=== PATIENT | female | born 1960 | race Caucasian/White ===

== ENCOUNTER 2020-11-12 18:28 | Emergency (ER) | payer OTHER | END 2020-11-12 19:12 | disposition home or self-care (01) | LOC: EDH 18:28 | DX: I10 Essential (primary) hypertension (principal); Z76.0 Encounter for issue of repeat prescription; F41.9 Anxiety disorder, unspecified; Z88.1 Allergy status to other antibiotic agents ==

== ENCOUNTER → 2024-05-16 | Outpatient (CLI) | payer OTHER | END | disposition home or self-care (01) | LOC: RAH 10:48 | PROVIDERS: ATTEND Student in an Organized Health Care Education/Training Program | DX: K44.9 Diaphragmatic hernia without obstruction or gangrene (principal) | CPT/HCPCS: 71250; 74176 ==

== ENCOUNTER 2024-05-29 14:00 | Inpatient (IN) | payer OTHER ==
[~2024-05-29] VITALS: Ht 172.7 cm; Wt 89.2 kg
[2024-05-29 15:13] LABS: BASOPHILS # (AUTO) 0.06 K/uL (0.00-0.20); EOSINOPHILS # (AUTO) 0.22 K/uL (0.00-0.70); EOSINOPHILS % (AUTO) 3.6 % (0.0-8.0); HEMATOCRIT 38.9 % (36-48); IMMATURE GRANULOCYTE ABSOLUTE 0.02 K/uL (0-1); LYMPHOCYTES # (AUTO) 1.8 K/uL (1.0-4.8); MEAN CORPUSCULAR HGB CONC 31.6 g/dL (32.0-36.0); MEAN CORPUSCULAR VOLUME 88.6 fL (79-99); MONOCYTES # (AUTO) 0.5 K/uL (0.1-1.0); MONOCYTES % (AUTO) 8.6 % (3.0-13.0); NEUTROPHILS # (AUTO) 3.4 K/uL (1.8-7.7); NEUTROPHILS % (AUTO) 56.5 % (40.0-77.0); PLATELET COUNT (AUTO) 299 K/uL (130-400); RED BLOOD CELL COUNT(AUTO) 4.39 MIL/uL (4.00-5.50); RED CELL DISTRIBUTION WIDTH 13.2 % (11.0-15.5); WHITE BLOOD COUNT (AUTO) 6.1 K/uL (4.8-10.8)
[2024-05-29 15:20] VITALS: BP 162/86; PULSE 82; RESP 18; TEMP 98.6
[2024-05-29 15:34] LABS: INR 0.98 (0.85-1.15); PROTHROMBIN TIME 10.6 SEC (9.6-11.6)
[2024-05-29 15:36] LABS: PARTIAL THROMBOPLASTIN TIME 26.2 SEC (26.3-35.5)
[2024-05-29] MEDS ORDERED: SUBOXONE SL (15:53)
[2024-05-29] MEDS ORDERED: GABA-534 PO (15:53)
[2024-05-29] MEDS ORDERED: CETI-89 PO (15:53)
[2024-05-29] MEDS ORDERED: OMEP20CA12 PO (15:53)
[2024-05-29] MEDS ORDERED: CITA-107 PO (15:53)
[2024-05-29] MEDS ORDERED: LISI1TAB51 PO (15:53)
[2024-05-29 15:55] LABS: ALBUMIN 3.8 g/dL (3.5-5.0); BILIRUBIN,TOTAL 0.3 mg/dL (0.2-1.0); CREATININE 0.9 mg/dL (0.5-1.0); POTASSIUM 3.7 mmol/L (3.5-5.1); TOTAL PROTEIN, SERUM 7.5 g/dL (6.0-8.3)
[2024-05-29 16:05] LABS: APPEARANCE,URINE CLEAR (CLEAR); BILIRUBIN,URINE NEGATIVE (NEGATIVE); COLOR,URINE LIGHT-YELLOW (YELLOW); GLUCOSE, URINE (UA) NEGATIVE (NEGATIVE); KETONES,URINE NEGATIVE (NEGATIVE); LEUKOCYTE ESTERASE ,URINE NEGATIVE Leu/uL (NEGATIVE); NITRATE,URINE NEGATIVE (NEGATIVE); OCCULT BLOOD,URINE SMALL (NEGATIVE); PH,URINE 5.5 (5.0-8.0); PROTEIN,URINE NEGATIVE (NEGATIVE); UROBILINOGEN,URINE 0.2 mg/dL (0.2-1.0)
[2024-05-29 16:06] LABS: ADD UA MICROSCOPIC YES
[2024-05-29 16:07] LABS: SQUAMOUS EPITHELIAL CELL,UR RARE /HPF (0-2); WBC,URINE 0-1 /HPF (0-1)
[2024-06-01] VITALS (30 sets, daily range): BP systolic 121–158; BP diastolic 64–83; PULSE 69–93; RESP 12–20; TEMP 97.1–98.6; O2SAT 94–95
[2024-06-01] MEDS: ceFAZolin SODIUM 2 GM VIAL ONE (08:28)
[2024-06-01] MEDS: LACTATED RINGERS 1000ML 1,000 ML IV ONE (08:29)
[2024-06-01] MEDS ORDERED: proPOFol 10 MG/ML 20ML VIAL IV ONE (09:47)
[2024-06-01] MEDS ORDERED: MIDAZOLAM HCL 1 MG/ML 2ML VIAL ONE (09:47)
[2024-06-01] MEDS ORDERED: FENTanyl CITRate PF 50 MCG/1 ML 5ML AMP IV ONE (09:47)
[2024-06-01] MEDS ORDERED: LIDOCAINE HCL MPF 1% 5ML VIAL ONE (09:47)
[2024-06-01] MEDS ORDERED: ROPivacaine 0.5% 5MG/ML 30ML ONE (09:48)
[2024-06-01] MEDS ORDERED: ONDANSETRON 4MG INJ ONE (09:53)
[2024-06-01] MEDS ORDERED: rocuRONium bROMide 10MG/1ML 5ML VL ONE (09:54)
[2024-06-01] MEDS: BUPIvacaine/PF 0.5% 30ML VIAL ONE (10:38)
[2024-06-01] MEDS ORDERED: NEOSTIGMINE METHYLSULFATE 1MG/ML IV ONE (11:29)
[2024-06-01] MEDS ORDERED: ePHEDrine SULFate 50 MG/ML AMPULE ONE (11:29)
[2024-06-01] MEDS ORDERED: GLYCOPYRROLATE 0.2 MG/ML 5 ML VIAL ONE (13:34)
[2024-06-01] MEDS: MEPERIDINE-PF 25 MG/ML SYG ONE (14:12)
[2024-06-01] MEDS ORDERED: ONDANSETRON 4MG INJ IVP PRN (15:30)
[2024-06-01] MEDS: morPHINE 4 MG SYG IVP PRN (15:50)
[2024-06-01] MEDS: acetaMINOPHEN/coDEINE 120/12MG 5ML PO PRN (18:48)
[2024-06-01] MEDS: GABAPENTIN 300 MG CAPSULE PO SCH (20:44)
[2024-06-01] MEDS: citaLOPram 20 MG TABLET PO SCH (20:45)
[2024-06-01] MEDS: SIMETHICONE 80 MG TAB.CHEW PO SCH (20:45)
[2024-06-01] MEDS: GABApentin 100 MG CAPSULE PO SCH (20:45)
[2024-06-02 03:26] VITALS: BP 125/61; PULSE 66; RESP 20; TEMP 98.4
[2024-06-02 05:03] LABS: HEMATOCRIT 37.4 % (36-48); MEAN CORPUSCULAR HEMOGLOBIN 27.9 pg (27.0-33.0); MEAN CORPUSCULAR HGB CONC 31.6 g/dL (32.0-36.0); MEAN CORPUSCULAR VOLUME 88.4 fL (79-99); RED BLOOD CELL COUNT(AUTO) 4.23 MIL/uL (4.00-5.50); RED CELL DISTRIBUTION WIDTH 13.5 % (11.0-15.5); WHITE BLOOD COUNT (AUTO) 16.3 K/uL (4.8-10.8)
[2024-06-02 05:19] LABS: CREATININE 1.1 mg/dL (0.5-1.0); POTASSIUM 3.8 mmol/L (3.5-5.1)
[2024-06-02 08:00] VITALS: BP 134/64; PULSE 70; RESP 12; TEMP 98.3
[2024-06-02 08:44] VITALS: O2SAT 96
[2024-06-02] MEDS: PANTOPRAZOLE 40 MG TAB DR PO SCH (08:44)
[2024-06-02] MEDS: ceTIRIzine HCL 5 MG TABLET PO SCH (08:44)
[2024-06-02] MEDS: LISINOPRIL 20 MG TABLET PO SCH (08:45)
[2024-06-02] MEDS: hydroCHLOROthiazide 25 MG TABLET PO SCH (08:45)
[2024-06-02] MEDS: doCUSate NA 100MG/10ML UDCUP PO SCH (08:45)
[2024-06-02] MEDS ORDERED: NON-FORMULARY MEDICATION 1 EACH (Lisinopril/Hydrochlorothiazide (Lisinopril-Hctz 20-12.5 m PO SCH (09:00)
[2024-06-02 12:00] VITALS: BP 131/64; PULSE 68; RESP 14; TEMP 98.6
[2024-06-02 16:00] VITALS: BP 143/76; PULSE 74; RESP 15; TEMP 98.7
== END 2024-06-02 20:30 | disposition home or self-care (01) | DRG 328 ==
LOC: DAHIP 06-01 07:18 → 3DH 06-01 15:24
PROVIDERS: ADMIT Student in an Organized Health Care Education/Training Program; ATTEND Student in an Organized Health Care Education/Training Program
PROC: 0DV44ZZ Restriction of Esophagogastric Junction, Percutaneous Endoscopic Approach (ICD-10-PCS; 2024-06-01)
PROC: 0BUT4JZ Supplement Diaphragm with Synthetic Substitute, Percutaneous Endoscopic Approach (ICD-10-PCS; principal; 2024-06-01 09:56)
PROC: 0DNW4ZZ Release Peritoneum, Percutaneous Endoscopic Approach (ICD-10-PCS; 2024-06-01 09:56)
PROC: 8E0W4CZ Robotic Assisted Procedure of Trunk Region, Percutaneous Endoscopic Approach (ICD-10-PCS; 2024-06-01 09:56)
DX: K44.9 Diaphragmatic hernia without obstruction or gangrene (principal); K21.9 Gastro-esophageal reflux disease without esophagitis; K66.0 Peritoneal adhesions (postprocedural) (postinfection); Z79.899 Other long term (current) drug therapy
CPT/HCPCS: 36415; 71045; 80048; 80053; 81001; 85025; 85027; 85610; 85730; 93005; A4344; G0378; J2175; J2250; J2270; J2405; J2704; J2710; J2795; J3010; J3490; J7030; J7120; A4215; A4221; A4222; A4223; A4600; A4663; A4930; A6260; C1781; J0665; J0690